=== PATIENT | female | born 1950 | race Caucasian/White ===

== ENCOUNTER 2023-09-25 00:45 | Day surgery (SDC) | payer OTHER, SELFPAY ==
[2023-09-22 10:49] VITALS: BMI 21.3
--- NOTE | 2023-09-22 11:01 | PC.NURSE ---
Addendum entered by Adrienne Camarillo RN 09/22/23 12:18: PT TO FOLLOW INSTRUCTIONS FROM DR. GARCIA REGARDING IBUPROFEN. Original Note: Report to the Outpatient Waiting Room, entrance under the green pavilion located off [facility], at time 7:00 on date 09/25/23. Planned Procedure Time: 9:00. Time changes happen often and if your time is changed the preop area will call you the afternoon before. - You and your visitor will be asked to self-screen and do not enter if you have any COVID symptoms. - A mask is optional within the hospital at this time. Patients may have clear liquids (water, carbonated beverages, clear teas, apple juice) until 3 hours prior to surgery (6:00) with a maximum of 20 ounces. - No food from midnight until time of surgery Take the following medications with a SIP of water the morning of surgery: INHALER/XANAX IF NEEDED DO NOT STOP ANY OF YOUR OTHER PRESCRIPTION MEDICATIONS PRIOR TO SURGERY ?EXCEPT THE FOLLOWING Medications to discontinue per physician: VITAMINS/SUPPLEMENTS Date to take last dose: NO MORE UNTIL AFTER SURGERY Please no make-up, nail setswana, hairspray, perfume, deodorant, or body powder the day of surgery. No jewelry (including any body piercings) or valuables the day of surgery, leave them at home. Please take a shower or bath the night before, or the morning of, surgery with an antibacterial soap. Wear comfortable, loose fitting clothing. - Jewelry must be removed prior to entering the operating room. Rings and piercings that are not removed may be cut off. - The hospital will not accept responsibility for valuables. - Please leave all valuables, including medications, at home the day of surgery. If you are going home after surgery, a licensed passenger coach driver must drive you home. - NO public transportation without another adult if you receive anesthesia. - We recommend that an adult stay with you for 24 hours following discharge. - We also recommend that you do not drive, make important decision, drink alcoholic beverages, or take any drugs that were not prescribed by your health care provider for at least 24 hours after your discharge time. Follow any additional instructions given to you from your surgeon. If you or anyone in your household have experienced Covid symptoms in the past week, please notify your surgeon or the nurse liaison at the phone number below for possible testing. Telephone instructions given to CLARICE YANEZ and asked if any additional questions and then verbalized understanding. Patient advised to call surgeon office or pre surgery nurse liaison [phone] if any additional questions.
[2023-09-25] VITALS (12 sets, daily range): BP systolic 136–161; BP diastolic 53–94; PULSE 88–104; RESP 11–20; TEMP 36.4–36.8; O2SAT 94–100
--- NOTE | 2023-09-25 07:06 | ECG_ITS ---
Measurements Intervals Rand Rate: 91 P: 76 NV: 152 QRS: 50 QRSD: 80 T: 66 QT: 356 QTc: 440 Interpretive Statements SINUS RHYTHM NORMAL ECG NO PREVIOUS ECG AVAILABLE FOR COMPARISON Electronically Signed On 09-25-2023 7:30:58 TELEMETRY REGISTERED NURSE by Jhony Novoa D.O.
--- NOTE | 2023-09-25 08:21 | P.OP_ITS ---
Procedure Note - Detailed Date of Procedure 09/25/23 Pre-op Diagnosis hx of breast augmentation Post-op Diagnosis Same Procedure Performed Bilateral breast implant exchange Surgeon Tommie Tineo MD Anesthesia General Indications Ruptured left implant Findings Previous implants: Bilateral smooth silicone 300cc Left - Ruptured Replacement implants: Bilateral Natrelle Inspira Softtouch 335cc Right - REF# [id number] SN [sn] Left - REF# [id number] SN [sn] No seromas. No worrisome features. Description of Procedure Preoperatively the risks, benefits, alternatives were discussed in extensive detail. I wanted to be very realistic about the risks involved as well as expectations. We discussed replacement implant size, width and profile in detail and she would like to proceed with implants above. We discussed how this will change her appearance and what this will not accomplish. We discussed that she would benefit from mastopexy and she declines understanding we will not be providing any degree of lift. We discussed nicotine use in great detail and outlined the risks clearly again. I was clear about how we could actually make her worse. Answered all questions to satisfaction. Voiced a clear u nderstanding. Consent obtained. She was taken the operating room placed supine on the operating room table. Anesthesia provided by anesthesiology and prepped and draped in a standard sterile fashion. Surgical time-out was taken. 1% lidocaine and 0.25% Marcaine with epinephrine was used to provide a field block. Tegaderm nipple godinez were placed. Fifteen blade used to excise the previous IMF scars. Dissection was continued down until the capsules were identified and excised a significant portion of the capsule on the left (which was sent to pathology) and capsulotomy on the right . I then copiously irrigated with 3 L of saline solution on TUR tubing. Verified strict hemostasis. I then irrigated with Betadine containing solution. Using a no-touch technique and a Avila funnel the implant was introduced into the pocket. This was closed with 2-0 PDS followed by 3-0 Monocryl and a running subcuticular 4-0 Monocryl followed by tissue glue. Dressings were placed. She was woken taken to the PACU without difficulty. All instrument sponge counts were correct at the end of the case. Estimated Blood Loss 25 Drains No Packing No Pathology Yes (Left breast capsules) Complications No immediate complications Condition Stable Disposition PACU
--- NOTE | 2023-09-25 08:21 | WPDHPUPDATE1 ---
History and Physical Update Update Date/Time: 09/25/23 08:21 History and Physical has been reviewed, including an updated exam of the patient. There are NO changes in the patient's condition. Risks, benefits, and alternatives have been discussed and questions answered. Patient agrees to proceed with procedure.
--- NOTE | 2023-09-25 08:24 | P.PNAN_ITS ---
Anes - Initial Pre Proc Eval Procedure: Operation Date: 09/25/23 09:00 Proposed Procedures p Bilateral Breast Implant Exchange - Tommie Tineo MD Date/Time: 09/25/23 08:24 Surgeon: Tommie Tineo MD Pre Op Diagnosis: hx of breast augmentation Patient Data Age: 73 Gender: F Height: 1.65 m Weight: 58 kg Last Vital Signs Temp 36.8 C 09/25/23 06:58 Pulse 104 H 09/25/23 06:58 Resp 20 09/25/23 06:58 BP 149/73 H 09/25/23 06:58 Pulse Ox 99 09/25/23 06:58 O2 Del Method Room Air 09/25/23 06:58 Allergies Allergy/AdvReac Type Severity Reaction Status Date / Time hydralazine Allergy Rash Verified 09/25/23 08:08 prednisone Allergy Rash Verified 09/25/23 08:08 Home Medications Medication Instructions Recorded Confirmed Type albuterol sulfate 90 mcg/actuation 2 inh inhalation Q4H PRN Shortness 09/22/23 09/25/23 History aerosol inhaler Of Breath alprazolam 0.25 mg tablet 0.25 mg PO TID PRN Anxiety 09/22/23 09/25/23 History ibuprofen 600 mg tablet 600 mg PO QID PRN Pain 09/22/23 09/25/23 History magnesium 250 mg tablet 250 mg PO DAILY 09/22/23 09/25/23 History multivitamin 1 tablet PO DAILY 09/22/23 09/25/23 History Patient hx anesthesia problems: post op nausea/vomiting Family hx anesthesia problems: none Results Review: All pre-operative results and documents have been reviewed as part of the pre- operative evaluation. [facility] Social History Social History Smoking packs per day: 0.75 Smoking cigarettes per day: 15.0 Years smoked: 28 Smoking pack-years: 21.00 Smoking status: Current some day smoker Tobacco type: cigarettes Alcohol intake: current Drinks per week: 14 Substance use: never Substance use type: does not use Living arrangements: with family Spiritual care concerns: No Anes - Eval Final PreProcedure Day of Procedure 09/25/23 08:24 Patient weight: normal Heart: regular rate and rhythm Lungs: decreased breath sounds Airway: Mallampati scale class II Neurological: alert and oriented Last oral intake: >/= 8 hours ASA classification: III Emergent: no Anesthetic plan: proceed Anesthesia type and monitoring: general LMA and standard monitoring Results Review: All pre-operative results and documents have been reviewed as part of the pre- operative evaluation. Informed Consent: The patient's anesthetic plan and its attendant risks and benefits were discussed with the patient/family/POA. Questions were solicited and answers provided to the satisfaction of the patient/family/POA.
[2023-09-25] MEDS: LIDO 1%/EPINEPHRINE 1:100,000 50 ML VIAL 30 ML INFILTRATE (08:41)
[2023-09-25] MEDS: ceFAZolin 2 GM/D5W 50 ML 2 GM/50 ML BAG IVPB (08:41)
[2023-09-25] MEDS: NACL 0.9% IRRIG POUR BOTTLE 900 ML, GENTAMICIN SULFATE INJ 160 MG, ceFAZolin 2 GM, POVI... IRRIGATION (08:41)
[2023-09-25] MEDS: BUPivacaine HCL 0.25% PF 30 ML VIAL INFILTRATE (08:41)
[2023-09-25] MEDS: LACTATED RINGERS 1,000 ML 30 ML IV CONT ×2 (09:53→10:11)
[2023-09-25] MEDS: fentaNYL CITRATE INJ (*CRX) 100 MCG/2 ML VIAL 25 MCG IV PUSH ×4 (10:01→10:28)
== END 2023-09-25 12:50 | disposition home or self-care (01) ==
PROVIDERS: PCP Internal Medicine; Visit Provider Surgery Plastic and Reconstructive Surgery
PROC: (CPT 19342; principal; 2023-09-25 09:00)
DX: T85.41XA Breakdown (mechanical) of breast prosthesis and implant, initial encounter (principal); Y83.8 Other surgical procedures as the cause of abnormal reaction of the patient, or of later complication, without mention of misadventure at the time of the procedure; F17.210 Nicotine dependence, cigarettes, uncomplicated; Z79.51 Long term (current) use of inhaled steroids
CPT/HCPCS: 19371; 19370; 19325; 88184; 88304; 93005; J0690; J1580; J2250; J2405; J2704; J3010; J7120